=== PATIENT | female | born 1990 | race Caucasian/White ===

== ENCOUNTER 2023-02-01 20:45 | Emergency (ER) | payer MEDICARE, MEDICAID, SELFPAY ==
[2023-02-01 20:46] VITALS: BP 132/81; PULSE 79; RESP 18; TEMP 37.3; O2SAT 97; BMI 45.7
[2023-02-01 21:44] LABS: Basophils # 0.1 10^3/uL (0.0-0.1); Basophils % 0.4 %; Eosinophils # 0.2 10^3/uL (0.0-0.8); Eosinophils % 1.5 %; Hematocrit 39.2 % (36-47); Lymphocytes # 2.7 10^3/uL (0.8-4.8); Lymphocytes % 23.3 %; Mean Corpuscular HGB Conc 31.4 g/dL (30-55); Mean Corpuscular Hemoglobin 28.3 pg (27-33); Mean Corpuscular Volume 90.1 fl (85-98); Monocytes # 0.7 10^3/uL (0.2-0.9); Monocytes % 5.7 %; Neutrophils % 68.8 %; Nucleated Red Blood Cells % 0 %; Platelet Count 301 10^3/cmm (157-399); Red Blood Count 4.35 10^6/uL (3.85-5.65); Red Cell Distribution Width 13.5 % (12.1-15.1)
[2023-02-01 22:11] LABS: Add Urine Microscopic? YES; Bilirubin Urine Neg (Negative); Blood Urine 2+ (Negative); Glucose Urine UA Norm (Normal); Ketones Urine Negative (Negative); Leukocyte Esterase Urine Negative (Negative); Nitrate Urine Negative (Negative); Protein Urine Neg (Negative); Urine Appearance Clear (CLEAR); Urine Color Yellow (Yellow); Urobilinogen Urine 1 mg/dL (Negative); pH Urine 6 (5-7)
[2023-02-01 22:12] LABS: Add Urine Culture? No; Bacteria Urine TRACE /hpf; RBC Urine 0-4 /hpf (0-2)
[2023-02-01 22:14] LABS: Alanine Aminotransferase 24 U/L (0-33); Alkaline Phosphatase 68 U/L (35-105); Anion Gap 14.4 (5-19); Aspartate Amino Transferase 19 U/L (0-32); Blood Urea Nitrogen 14 mg/dL (6-20); Calcium 8.8 mg/dL (8.5-10.5); Carbon Dioxide 25 mmol/L (22-29); Chloride 104 mmol/L (98-107); Globulin 3.3 g/dL (1.3-4.6); Glucose 82 mg/dL (65-115); Lipase 19 U/L (13-60); Osmolality Calculated 288 mOsm/kg (285-295); Potassium 4.4 mmol/L (3.5-5.1); Sodium 139 mmol/L (136-145); Total Bilirubin 0.3 mg/dL (0.15-1.2); Total Protein 7.3 g/dL (6.6-8.7)
[2023-02-01] MEDS: sodium chloride 0.9% 1,000 ML 999 ML IV (22:16)
[2023-02-01] MEDS: ondansetron 2 mg/ML SDV 2 mL 4 MG IVP (22:17)
[2023-02-01 22:21] LABS: HCG Qualitative Urine. Negative (Negative)
--- NOTE | 2023-02-01 22:34 | CTR_ITS ---
PROCEDURE INFORMATION: Exam: CT Abdomen And Pelvis Without Contrast Exam date and time: 02/01/2023 10:46 PM Age: 32 years old Clinical indication: Other: Hematuria TECHNIQUE: Imaging protocol: Computed tomography of the abdomen and pelvis without contrast. Radiation optimization: All CT scans at this facility use at least one of these dose optimization techniques: automated exposure control; mA and/or kV adjustment per patient size (includes targeted exams where dose is matched to clinical indication); or iterative reconstruction. REPORTING DATA: Count of CT and Cardiac NM exams in prior 12 months: This patient has received 0 known CTs and 0 known cardiac nuclear medicine studies in the 12 months prior to the current study. COMPARISON: No relevant prior studies available. RADIATION DOSE METRICS: Total DLP (mGy-cm): 1241.79 FINDINGS: Lungs: Left basilar atelectasis is noted. Liver: Normal. No mass. Gallbladder and bile ducts: Normal. No calcified stones. No ductal dilation. Pancreas: Normal. No ductal dilation. Spleen: Normal. No splenomegaly. Adrenal glands: Normal. No mass. Kidneys and ureters: No renal or ureteral stone is seen. Mild right hydronephrosis is noted. Stomach and bowel: Unremarkable. No obstruction. No mucosal thickening. Appendix: The appendix is normal. Intraperitoneal space: Unremarkable. No free air. No significant fluid collection. Vasculature: Unremarkable. No abdominal aortic aneurysm. Lymph nodes: Unremarkable. No enlarged lymph nodes. Urinary bladder: Unremarkable as visualized. Reproductive: Unremarkable as visualized. Bones/joints: Unremarkable. No acute fracture. Soft tissues: Unremarkable. CT/CT kidney stone [id number] IMPRESSION: No acute abnormality is seen in the abdomen or pelvis. Mild right hydronephrosis is noted. No renal stone or ureteral stone is seen.
--- NOTE | 2023-02-01 23:33 | W.ED.NAVMDI ---
HPI - Nausea/Vomiting/Diarrhea General: Chief complaint: Nausea/Vomiting/Diarrhea Stated complaint: N/V Time Seen by Provider: 02/01/23 20:47 History of Present Illness: 32-year-old female with complex medical history including cerebral palsy presents emergency room via EMS due to nausea and vomiting according to [facility] staff. Upon present emergency room patient is nonverbal but appears to be comfortable without any acute distress. Associated nausea: Yes Associated symtoms: Reports nausea Review of Systems General: Reports: 10 or more systems reviewed and unremarkable except in HPI and below Narrative: Unable to obtain due to patient's medical conditions GI: Reports: nausea and vomiting Physical Exam Const: EXAM LIMITATIONS: physical limitations Eye: COMMON NORMALS: Equal, round and reactive pupils present, EOMs intact bilaterally, conjunctivae normal, no scleral icterus, no papilledema, normal visual ramos by confrontation and fundi normal bilaterally CONJUNCTIVA: Yes conjunctivae normal PUPIL: Yes Equal, round and reactive pupils present DIRECT OPHTHALMOSCOPY: Yes no papilledema and Yes fundi normal bilaterally Neck/C-Spine: COMMON NORMALS: no JVD Resp: COMMON NORMALS: normal respiratory effort, No retractions, No use of accessory muscles, clear to auscultation bilaterally and percussion normal AUSCULTATION: clear to auscultation bilaterally PERCUSSION: percussion normal Cardio: COMMON NORMALS: no JVD, regular rate, regular rhythm, S1 normal heart sound present, S2 normal heart sound present, No gallops present (Cardio), No clicks present (Cardio), No murmurs present (Cardio), No rub (Cardio) and Peripheral pulses 2+ throughout RATE: regular rate RHYTHM: regular rhythm HEART SOUNDS: S1 normal heart sound present and S2 normal heart sound present PERIPHERAL PULSES: Peripheral pulses 2+ throughout GI: COMMON NORMALS: Soft to palpation, non-tender, No hepatosplenomegaly present and no masses PALPATION: Yes Soft to palpation and Yes No hepatosplenomegaly present Extremity: COMMON NORMALS: normal to inspection, full ROM, capillary refill normal, no joint enlargement, no clubbing, cyanosis or edema, no calf tenderness and no pedal edema Neuro: MENINGEAL SIGNS: No nuccal rigidity, No Brudzinski's sign present and No Kernig's sign presnet Skin: GENERAL SKIN EXAM: no ecchymo, no induration, no mottling, no purpura, no pallor and normal turgor TRAUMA: no lacerations or abrasions, no lacerations and no punctures noted Course Vital Signs: Vital signs: Vital Signs Temperature 99.2 F 02/01/23 20:46 Pulse Rate 79 02/01/23 20:46 Respiratory Rate 18 02/01/23 20:46 Blood Pressure 132/81 02/01/23 20:46 Pulse Oximetry 97 02/01/23 20:46 MDM - Nausea/Vomiting/Diarrhea Medical Decision Making Patient made comfortable emergency room had extensive work-up including CBC CMP patient was given IV fluid. And Zofran. CT scan was done. Patient remained stable patient be discharged back to [facility] for further care. Differential Diagnosis Likely traveler's diarrhea, food poisoning, gastroenteritis, clostridium difficile infection, drug-induced nausea and vomiting and dehydration Lab Data 02/01/23 21:30 02/01/23 21:30 Radiology Impressions Abdomen/Pelvis CT 02/01/23 22:34 IMPRESSION: No acute abnormality is seen in the abdomen or pelvis. Mild right hydronephrosis is noted. No renal stone or ureteral stone is seen. Laboratory Results WBC 11.50 10^3/uL (3.29-11.43) H 02/01/23 21:30 RBC 4.35 10^6/uL (3.85-5.65) 02/01/23 21:30 Hgb 12.30 g/dL (11.27-16.99) 02/01/23 21:30 Hct 39.2 % (36-47) 02/01/23 21:30 MCV 90.1 fl (85-98) 02/01/23 21:30 MCH 28.3 pg (27-33) 02/01/23 21:30 MCHC 31.4 g/dL (30-55) 02/01/23 21:30 RDW 13.5 % (12.1-15.1) 02/01/23 21:30 Plt Count 301 10^3/cmm (157-399) 02/01/23 21:30 MPV 11.0 fL (7.4-10.4) H 02/01/23 21:30 Neut % (Auto) 68.8 % 02/01/23 21:30 Lymph % (Auto) 23.3 % 02/01/23 21:30 [place] % (Auto) 5.7 % 02/01/23 21:30 Eos % (Auto) 1.5 % 02/01/23 21:30 Baso % (Auto) 0.4 % 02/01/23 21:30 Neut # (Auto) 7.90 10^3/uL (1.8-7.7) H 02/01/23 21:30 Lymph # (Auto) 2.7 10^3/uL (0.8-4.8) 02/01/23 21:30 [place] # (Auto) 0.7 10^3/uL (0.2-0.9) 02/01/23 21:30 Eos # (Auto) 0.2 10^3/uL (0.0-0.8) 02/01/23: Baso # (Auto) 0.1 10^3/uL (0.0-0.1) 02/01/23 21:30 Nucleated RBC % (auto) 0 % 02/01/23 21: Nucleated RBCs # 0.0 /100WBC 02/01/23 21:30 Sodium 139 mmol/L (136-145) 02/01/23 21:30 Potassium 4.4 mmol/L (3.5-5.1) 02/01/23 21:30 Chloride 104 mmol/L (98-107) 02/01/23 21: Carbon Dioxide 25 mmol/L (22-29) 02/01/23 21:30 Anion Gap 14.4 (5-19) 02/01/23 21:30 BUN 14 mg/dL (6-20) 02/01/23 21:30 Creatinine 0.7 mg/dL (0.5-0.9) 02/01/23 21:30 GFR Calculation 97.0 mL/min (90-130) 02/01/23 21:30 Glucose 82 mg/dL (65-115) 02/01/23 21:30 Calculated Osmolality 288 mOsm/kg (285-295) 02/01/23 21:30 Calcium 8.8 mg/dL (8.5-10.5) 02/01/23 21:30 Total Bilirubin 0.3 mg/dL (0.15-1.2) 02/01/23 21:30 AST 19 U/L (0-32) 02/01/23 21:30 ALT 24 U/L (0-33) 02/01/23 21:30 Alkaline Phosphatase 68 U/L (35-105) 02/01/23 21:30 Total Protein 7.3 g/dL (6.6-8.7) 02/01/23 21:30 Albumin 4.0 g/dL (3.5-5.2) 02/01/23 21:30 Globulin 3.3 g/dL (1.3-4.6) 02/01/23 21:30 Lipase 19 U/L (13-60) 02/01/23 21:30 HCG, Qual Negative (Negative) 02/01/23 21:50 Urine Color Yellow (Yellow) 02/01/23 21:50 Urine Appearance Clear (CLEAR) 02/01/23 21:50 Urine pH 6 (5-7) 02/01/23 21:50 Ur Specific [place] 1.020 (1.005-1.030) 02/01/23 21:50 Urine Protein Neg (Negative) 02/01/23 21:50 Urine Glucose (UA) Norm (Normal) 02/01/23 21:50 Urine Ketones Negative (Negative) 02/01/23 21:50 Urine Blood 2+ (Negative) H 02/01/23 21:50 Urine Nitrate Negative (Negative) 02/01/23 21:50 Urine Bilirubin Neg (Negative) 02/01/23 21:50 Urine Urobilinogen 1 mg/dL (Negative) H 02/01/23 21:50 Ur Leukocyte Esterase Negative (Negative) 02/01/23 21:50 Urine RBC 0-4 /hpf (0-2) H 02/01/23 21:50 Urine WBC None /hpf (0-5) 02/01/23 21:50 Ur Squamous Epith Cells 5-10 /hpf (0-5) H 02/01/23 21:50 Amorphous Sediment Not Reportable 02/01/23 21:50 Urine Bacteria Trace /hpf (NONE) 02/01/23 21:50 XR interpretation done by ED provider, pending radiology final review Discharge Plan Discharge Patient Disposition: Home Clinical Impression: Gastroenteritis Condition: Stable Discharge Orders: Discharge ED (Routine); Ordered 02/01/23 Ordered By: Julio Garcia Referrals: Jignesh Mcarthur MD [Primary Care Provider] - Discharge Diet: Advance as tolerated Discharge Activity: Bedrest Patient Instructions: Opioid Safety, Pain Management Coding Level of Care Code ED Tugboat Pilot for Janay Bartholomew
--- NOTE | 2023-02-02 00:45 | PC.NURSE ---
pts depends, pajama bottoms, and bed sheets were changed d/t incontinence at this time
== END 2023-02-02 02:23 | disposition home or self-care (01) ==
PROVIDERS: Emergency Provider Family Medicine; PCP Family Medicine
DX: K52.9 Noninfective gastroenteritis and colitis, unspecified (principal); N13.30 Unspecified hydronephrosis
CPT/HCPCS: 36415; 74176; 80053; 81001; 81025; 83690; 85025; 96374; 99285; J2405; J7030

== ENCOUNTER → 2023-06-11 10:17 | Outpatient (BNVA) | payer MEDICARE, MEDICAID, SELFPAY | PROVIDERS: PCP Family Medicine; Referring Provider Dermatology; Visit Provider Orthopaedic Surgery | DX: M54.2 Cervicalgia (principal); F84.0 Autistic disorder | CPT/HCPCS: 72040; 99203 ==

== ENCOUNTER 2023-07-20 07:25 | Inpatient (IN) | payer MEDICARE, MEDICAID, SELFPAY ==
[2023-07-20] VITALS (30 sets, daily range): BP systolic 107–146; BP diastolic 72–92; PULSE 56–100; RESP 11–50; TEMP 22.7–36.8; O2SAT 85–98
--- NOTE | 2023-07-20 07:32 | XR_ITS ---
WS: [id number] Examination: XR chest 1V portable [id number] Reason for Exam: Chest pain Date: July 20, 2023 Comparison: None. Findings: The heart is not enlarged. The mediastinum is not widened Extensive infiltrative changes are identified throughout the left lung. No large pleural effusion is identified. There is curvature of the thoracolumbar spine with convexity to the right. Impression: Extensive left-sided infiltrative changes are noted. When the patient can tolerate PA and lateral yoel ging is recommended.
[2023-07-20] MEDS: ziprasidone 20 mg/mL SDV IM (07:45)
--- NOTE | 2023-07-20 07:45 | W.ED.SOB ---
HPI - SOB/Dyspnea General: Chief Complaint: Shortness of Breath/Dyspnea Stated Complaint: SOB Time Seen by Provider: 07/20/23 07:30 History of Present Illness: HPI Narrative: 33-year-old female with history of obesity, autism and severe developmental delay who presents to the emergency room by ambulance with shortness of breath and hypoxemia. EMS reports that her oxygen saturations were in the low 80s. She is very agitated and will not tolerate supplemental oxygen. Unable to obtain any other history. She makes a grunting noise with each breath, however EMS reports that personnel from the facility from which she came reports that she always makes this noise. Review of Systems Narrative: Unable to obtain secondary to autism/developmental delay Physical Exam Narrative: EXAM NARRATIVE: General: Alert, agitated Skin: Warm, dry. Head: Normocephalic, atraumatic. Neck: Supple, trachea midline. Eye: Extraocular movements are intact. Ears, nose, mouth and throat: Moist oral mucosa Cardiovascular: Regular, Normal peripheral perfusion. Respiratory: Coarse, diminished breath sounds on the left, tachypnea, breath sounds are equal, Symmetrical chest wall expansion. Gastrointestinal: Soft, Nontender, Non distended, Normal bowel sounds. Musculoskeletal: Normal ROM, no deformity. Neurological: Alert, No focal neurological deficit observed. Psychiatric: Patient is severely autistic. She is somewhat agitated. She is fairly uncooperative. Course Vital Signs: Vital signs: Vital Signs Temperature 98.3 F 07/20/23 07:27 Pulse Rate 61 07/20/23 10:00 Respiratory Rate 34 H 07/20/23 10:00 Blood Pressure 115/79 07/20/23 10:00 Pulse Oximetry 94 07/20/23 10:00 Oxygen Delivery Me thod Nasal Cannula 07/20/23 09:10 Oxygen Flow Rate 5 07/20/23 09:10 MDM - SOB/Dyspnea Medical Decision Making Medical decision making: Differential diagnosis including but not limited to and based on the above HPI, review of systems and physical exam: Patient with hypoxemia and shortness of breath. Concern for pneumonia, flu, COVID. Sepsis, renal failure, Orders placed to evaluate differential diagnosis based on the above differential, HPI and physical exam Lab Review: Laboratory results were reviewed and interpreted by myself the emergency room physician. Patient has leukocytosis with a white count of 14 and a left shift with neutrophils at 88%. However her lactate is 0.6, so given her fairly normal blood pressure and heart rate I do not think she is septic at this time. Renal function is normal with a BUN and creatinine of 10 and 0.6. Arterial blood gas: 7.32/45/58 with a sat of 86% on room air Chest x-ray: No acute process. Patient has diffuse left-sided infiltrate. No pneumothorax. No cardiomegaly. This was reviewed and interpreted by myself the ER physician. EKG: Time 9:15 AM rate 79 normal sinus rhythm, No ST-T changes, no ectopy, normal ME & QRS intervals, This was reviewed and interpreted by myself the ER physician at 9:18 AM. Reexamination: After 20 mg of Geodon and a total of 3 mg of Ativan, the patient is now somnolent and no longer agitated. She is maintaining her airway at this time. Consultation: I spoke with the hospitalist. He is consulting the flight test engineer. Request a CT scan of the chest. Will admit to the ICU. Lab Data 07/20/23 07:54 07/20/23 07:54 Labs/Radiology: Laboratory Results WBC 14.61 10^3/uL (3.29-11.43) H 07/20/23 07:54 RBC 4.79 10^6/uL (3.85-5.65) 07/20/23 07:54 Hgb 13.90 g/dL (11.27-16.99) 07/20/23 07:54 Hct 42.9 % (36-47) 07/20/23 07:54 MCV 89.6 fl (85-98) 07/20/23 07:54 MCH 29.0 pg (27-33) 07/20/23 07:54 MCHC 32.4 g/dL (30-55) 07/20/23 07:54 RDW 13.2 % (12.1-15.1) 07/20/23 07:54 Plt Count 314 10^3/cmm (157-399) 07/20/23 07:54 MPV 10.6 fL (7.4-10.4) H 07/20/23 07:54 Neut % (Auto) 88.2 % 07/20/23 07:54 Lymph % (Auto) 7.7 % 07/20/23 07:54 [place] % (Auto) 3.4 % 07/20/23 07:54 Eos % (Auto) 0.0 % 07/20/23 07:54 Baso % (Auto) 0.3 % 07/20/23 07:54 Neut # (Auto) 12.88 10^3/uL (1.8-7.7) H 07/20/23 07:54 Lymph # (Auto) 1.1 10^3/uL (0.8-4.8) 07/20/23 07:54 [place] # (Auto) 0.5 10^3/uL (0.2-0.9) 07/20/23 07:54 Eos # (Auto) 0.0 10^3/uL (0.0-0.8) 07/20/23 07:54 Baso # (Auto) 0.1 10^3/uL (0.0-0.1) 07/20/23 07:54 Nucleated RBC % (auto) 0 % 07/20/23 07:54 Nucleated RBCs # 0.0 /100WBC 07/20/23 07:54 Specimen Type Arterial 07/20/23 07:42 Sample Site Radial, left 07/20/23 07:42 ABG pH 7.32 (7.35-7.45) L 07/20/23 07:42 ABG pCO2 44.8 mmHg (35-45) 07/20/23 07:42 ABG pO2 57.5 mmHg (80.0-100.0) L 07/20/23 07:42 ABG PO2/FiO2 Ratio 0 07/20/23 07:42 ABG HCO3 23.2 mmol/L (22-26) 07/20/23 07:42 ABG O2 Saturation 87.9 07/20/23 07:42 ABG Base Excess -3.0 mmol/L (-2.0-2.0) L 07/20/23 07:42 David Test Pos 07/20/23 07:42 A-a O2 Gradient 4.5 mmHg (5-10) L 07/20/23 07:42 Hematocrit 43.8 % (37-47) 07/20/23 07:42 Hgb O2 Saturation 86.6 % (95-100) L 07/20/23 07:42 Carboxyhemoglobin 1.0 %THgb (0.4-20.1) 07/20/23 07:42 Methemoglobin 0.5 % (0.4-1.5) 07/20/23 07:42 Total Hemoglobin 14.3 g/dL (12-16) 07/20/23 07:42 Sodium 140.0 mmol/L (131-143) 07/20/23 07:42 Potassium 4.2 mmol/L (3.5-5.0) 07/20/23 07:42 Glucose 90.0 mg/dL (70-115) 07/20/23 07:42 Ionized Calcium 1.3 mmol/L (1.1-1.4) 07/20/23 07:42 O2 Delivery Device Room air 07/20/23 07:42 FiO2 21.0 % 07/20/23 07:42 Community Nutrition Educator ID [place] 07/20/23 07:42 Sodium 137 mmol/L (136-145) 07/20/23 07:54 Potassium 4.1 mmol/L (3.5-5.1) 07/20/23 07:54 Chloride 102 mmol/L (98-107) 07/20/23 07:54 Carbon Dioxide 21 mmol/L (22-29) L 07/20/23 07:54 Anion Gap 18.1 (5-19) 07/20/23 07:54 BUN 10 mg/dL (6-20) 07/20/23 07:54 Creatinine 0.6 mg/dL (0.5-0.9) 07/20/23 07:54 GFR Calculation 115.1 mL/min (90-130) 07/20/23 07:54 Glucose 107 mg/dL (65-115) 07/20/23 07:54 Calculated Osmolality 284 mOsm/kg (285-295) L 07/20/23 07:54 Lactic Acid 1.4 mmol/L (0.5-2.2) 07/20/23 07:54 Calcium 8.7 mg/dL (8.5-10.5) 07/20/23 07:54 Total Bilirubin 0.6 mg/dL (0.15-1.2) 07/20/23 07:54 AST 35 U/L (0-32) H 07/20/23 07:54 ALT 62 U/L (0-33) H 07/20/23 07:54 Alkaline Phosphatase 81 U/L (35-105) 07/20/23 07:54 C-Reactive Protein 31.1 mg/L (0.0-4.9) H 07/20/23 07:54 Total Protein 7.8 g/dL (6.6-8.7) 07/20/23 07:54 Albumin 4.2 g/dL (3.5-5.2) 07/20/23 07:54 Globulin 3.6 g/dL (1.3-4.6) 07/20/23 07:54 Influenza Type A Ag negative (Negative) 07/20/23 09:04 Influenza Type B Ag negative (Negative) 07/20/23 09:04 All radiology interpretation(s) finalized by discharge Other Data Assessment and plan: Community-acquired bacterial pneumonia Hypoxemia Autism Agitation -IV Levaquin for pneumonia. Also gave a dose of 125 mg of Solu-Medrol -Patient was severely agitated would not tolerate even supplemental oxygen. Initially gave 20 mg of Geodon. Then she has received multiple doses of Ativan. She had become less agitated but is again pulling at her oxygen and so we are starting Precedex drip. This per the hospitalist. -I discussed the patient with the Dr. Jorge who is on-call for the hospitalist service who agrees to admit the patient. - Discussed findings and plan with patient. Answered any questions. - All laboratory values were reviewed and interpreted personally by myself, the ER physician - All imaging was reviewed and interpreted personally by myself, the ER physician. - Evaluation and treatment of this problem were appropriate in the emergency setting --I spent a total of >35 minutes of critical care time managing the patient, independent of any other practitioner. -The time involved in the performance of separately reportable procedures was not counted towards critical care time. Discharge Plan Discharge Patient Disposition: Admitted As Inpatient Clinical Impression: Community acquired pneumonia, Hypoxemia, Autism, Agitation Condition: Stable Coding Level of Care Code ED Medical Advisor for Janay Bartholomew
[2023-07-20] MEDS: water for injection-sterile 10 ML (07:46)
[2023-07-20 07:53] LABS: ABG PCO2 44.8 mmHg (35-45); ABG PH Result 7.32 (7.35-7.45); Alveolar-Arterial Oxygen Gradi 4.5 mmHg (5-10); Arterial Blood Gas Hematocrit 43.8 % (37-47); Blood Gas Allen Test Pos; Blood Gas Operator Identificat WALCI; Blood Gas Sample Site Radial, left; Blood Gas Sample Type Arterial; HCO3 ABG 23.2 mmol/L (22-26); HGB O2 Sat 86.6 % (95-100); Ionized Calcium Level - ABG 1.3 mmol/L (1.1-1.4); Methemoglobin 0.5 % (0.4-1.5); Oxygen Device ROOM AIR; Oxygen Saturation ABG 87.9; PO2 ABG 57.5 mmHg (80.0-100.0); PO2 FiO2 Ratio Arterial Blood 0; Potassium Level - ABG 4.2 mmol/L (3.5-5.0); Total Hemoglobin 14.3 g/dL (12-16)
[2023-07-20] MEDS: ipratropium-albuterol 3 mL Neb INHALATION (07:56)
[2023-07-20] MEDS: albuterol 2.5 mg/3 mL Neb INHALATION (07:56)
--- NOTE | 2023-07-20 08:18 | PC.NURSE ---
ATTEMPTED TO REACH GUARDIAN, PUBLIC ADMIN OFFICE GAVE HER PERSONAL NUMBER AT [phone]. NO ANSWER AT [id number].
--- NOTE | 2023-07-20 09:08 | PC.NURSE ---
patient would not tolerate having pulse ox on consistently, BP cuff, or oxygen until 0901.
[2023-07-20 09:10] LABS: Basophils # 0.1 10^3/uL (0.0-0.1); Basophils % 0.3 %; Hematocrit 42.9 % (36-47); Lymphocytes # 1.1 10^3/uL (0.8-4.8); Lymphocytes % 7.7 %; Mean Corpuscular HGB Conc 32.4 g/dL (30-55); Mean Corpuscular Volume 89.6 fl (85-98); Mean Platelet Volume 10.6 fL (7.4-10.4); Monocytes # 0.5 10^3/uL (0.2-0.9); Monocytes % 3.4 %; Neutrophils # 12.88 10^3/uL (1.8-7.7); Neutrophils % 88.2 %; Nucleated Red Blood Cells % 0 %; Platelet Count 314 10^3/cmm (157-399); Red Blood Count 4.79 10^6/uL (3.85-5.65); Red Cell Distribution Width 13.2 % (12.1-15.1); White Blood Count 14.61 10^3/uL (3.29-11.43)
[2023-07-20] MEDS: LORazepam 2 mg/mL INJ 10 mL MDV 1 MG IV (09:10)
--- NOTE | 2023-07-20 09:15 | ECG_ITS ---
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 Measurements Intervals [place] Rate: 79 P: 46 FL: 140 QRS: 122 QRSD: 93 T: 112 QT: 420 QTc: 482 Interpretive Statements SINUS RHYTHM LEFT POSTERIOR FASCICULAR BLOCK [QRS AXIS > 109, INFERIOR Q] No previous ECG available for comparison Electronically Signed On 07-20-2023 11:45:03 CDT by Christopher Garay M.D. [id number]
[2023-07-20 09:30] LABS: Influenza A by IFA negative (Negative); Influenza B by IFA negative (Negative)
[2023-07-20 09:34] LABS: Alanine Aminotransferase 62 U/L (0-33); Albumin Level 4.2 g/dL (3.5-5.2); Alkaline Phosphatase 81 U/L (35-105); Anion Gap 18.1 (5-19); Aspartate Amino Transferase 35 U/L (0-32); Blood Urea Nitrogen 10 mg/dL (6-20); C Reactive Protein 31.1 mg/L (0.0-4.9); Calcium 8.7 mg/dL (8.5-10.5); Carbon Dioxide 21 mmol/L (22-29); Chloride 102 mmol/L (98-107); Creatinine Clr Calc Pharmacy 148.0868; Globulin 3.6 g/dL (1.3-4.6); Glomerular Filtration Rate 115.1 mL/min (90-130); Glucose 107 mg/dL (65-115); Lactic Sepsis W/Reflex 1.4 mmol/L (0.5-2.2); Osmolality Calculated 284 mOsm/kg (285-295); Potassium 4.1 mmol/L (3.5-5.1); Sodium 137 mmol/L (136-145); Total Bilirubin 0.6 mg/dL (0.15-1.2); Total Protein 7.8 g/dL (6.6-8.7)
--- NOTE | 2023-07-20 10:22 | CT_ITS ---
WS: [id number] CT CHEST TECHNIQUE: Contrast enhanced CT of the chest with coronal and sagittal reformatted images. CLINICAL INFORMATION: Left-sided pneumonia COMPARISON: None. DLP: 658.[address] scans at [facility] use at least one of these dose optimization techniques: automated e xposure control; mA and/or kV adjustment per patient size (includes targeted exams where dose is matc hed to clinical indication); or iterative reconstruction. FINDINGS: Patchy airspace infiltrates in the LEFT upper lobe, lingula, and superior segment LEFT lower lobe co mpatible with pneumonia. Some areas of developing consolidation. No significant pleural fluid. Subseg mental ectasis in the lung bases. No visualized endobronchial lesions. Normal caliber thoracic aorta. No axillary lymphadenopathy. Small esophageal hiatal hernia. Adrenal glands are normal. Hepatomegaly. Diffuse fatty infiltration of the liver. Small hepatic cyst in the RIGHT hepatic lobe measuring 6 mm. Mild chronic compression superior end plates at T5 and T6. IMPRESSION: 1. Patchy airspace infiltrates in the LEFT upper lobe, lingula, and superior segment LEFT lower lobe compatible with pneumonia. 2. No visualized endobronchial lesions. 3. Recommend follow-up to resolution. 4. Partially visualized hepatomegaly with diffuse fatty infiltration.
[2023-07-20] MEDS: iohexol 350 mg/mL 500 mL Btl (per mL) IV (10:56)
[2023-07-20 11:00] LABS: Adenovirus Not Detected (NOT DETECT); Chlamydia Pneumoniae Not Detected (NOT DETECT); Coronavirus 229E,HKU1,NL63,OC4 Not Detected (NOT DETECT); Human Metapneumovirus Not Detected (NOT DETECT); Human Rhinovirus/Enterovirus Not Detected (NOT DETECT); Influenza A Not Detected (NOT DETECT); Influenza A H1 Not Detected (NOT DETECT); Influenza A H1-2009 Not Detected (NOT DETECT); Influenza A H3 Not Detected (NOT DETECT); Influenza B Not Detected (NOT DETECT); Mycoplasma Pneumoniae Not Detected (NOT DETECT); Parainfluenza Virus Type 1 Not Detected (NOT DETECT); Parainfluenza Virus Type 2 Not Detected (NOT DETECT); Parainfluenza Virus Type 3 Not Detected (NOT DETECT); Parainfluenza Virus Type 4 Not Detected (NOT DETECT); Respiratory Syncytial Virus A Not Detected (NOT DETECT); Respiratory Syncytial Virus B Not Detected (NOT DETECT); SARS-COV-2 Not Detected (NOT DETECT)
[2023-07-20] MEDS: levofloxacin-dextrose 5 % 750 MG/150 ML PREMIX 100 MG IV (11:02)
[2023-07-20] MEDS: methylPREDNISolone sod succ 125 mg/2 mL INJ IVP (11:02)
--- NOTE | 2023-07-20 11:10 | P.HP_ITS ---
Documented by User: MAX Oliver 07/20/23 13:01 Providers/Chief Complaint 2 Primary Care Provider: Jignesh Mcarthur MD Chief Complaint: SOB History of Present Illness Sloane Castillo is a 33 year old female with known past medical history of obesity, autism, and severe developmental delay resides at [facility] presents to the emergency room today with chief complaint of shortness of breath and hypoxemia. Ms. Castillo is currently requiring 6 L NC and was tachypneic on assessment this morning. When attempting to interview Ms. Castillo she was very drowsy but still attempting to pull off her oxygen. She was nonverbal but letting out groans intermittently, unable answer any questions. When calling the [facility], Sloane's nurse explained that her normal baseline is nonverbal, she mostly speaks in groans She is able to ambulate and fed herself and does not normally wear oxygen. Around 0300 this morning 07/20/23 patient started groaning and squealing more than usual at 0600 the day shift nurse arrived and said that Sloane was sitting up in a chair and later moved to lay down in bed. Later she found Sloane to be purple in the face with an o2 stat in the 60% they palced her on 2L NC and turned her up to 3L NC. Nursing staff reported to me that it took a total of 30mins to finally get her oxygen 88-90%, EMS finally arrived and brought patient to the hospital. Nurse staff stated that Sloane did not have fever, nausea, or diarrhea recently. They suspected she may have aspirated on something that lead to the sudden need for oxygen. Patient is a full code and does takes her medications crushed with pudding. In the Emergency Department she received Solu-Medrol 125mg IVP, NS 1L bolus, Levaquin 750mg IV, Ativan 1mg IVP, [id number] IM, albuterol breathing treatment, and a douneb breathing treatment. A CBC, CMP, EKG, Chest X-ray, Chest CT w contrast, blood cultures, UA, Flu swab, Covid swab were obtained. Patient to be transferred to the ICU for further care and management of pneumonia. Review of Systems 2 General: Reports: ROS unobtainable due to medical condition Medications/Allergies Home Medications Medication Instructions Recorded Confirmed Last Taken Type acetaminophen 325 mg tablet 650 mg PO QID PRN Pain 07/20/23 07/20/23 07/19/23 History aripiprazole 10 mg tablet 10 mg PO QAM 07/20/23 07/20/23 07/19/23 History baclofen 5 mg tablet 5 mg PO BID 07/20/23 07/20/23 07/19/23 History clonidine HCl 0.1 mg tablet 0.1 mg PO BEDTIME 07/20/23 07/20/23 07/19/23 History diazepam 5 mg tablet 5 mg PO BID 07/20/23 07/20/23 07/19/23 History naloxone 2 mg/2 mL syringe kit 2 mg IM Q2M PRN Opioid Overdose 07/20/23 07/20/23 Unknown History norethindrone acetate 5 mg tablet 5 mg PO QAM 07/20/23 07/20/23 07/19/23 History pantoprazole 40 mg tablet,delayed 40 mg PO QAM 07/20/23 07/20/23 07/19/23 History release propranolol 20 mg tablet 20 mg PO BID 07/20/23 07/20/23 07/19/23 History sertraline 100 mg tablet 150 mg PO QAM 07/20/23 07/20/23 07/19/23 History Allergies Allergy/AdvReac Type Severity Reaction Status Date / Time Penicillins Allergy Unknown Verified 07/20/23 07:55 PFSH Acute 2 PFSH: Medical History Autism Vitals/I&O/Wt Last Vital Signs Temp 98.3 F 07/20/23 07:27 Pulse 61 07/20/23 10:00 Resp 34 H 07/20/23 10:00 BP 115/79 07/20/23 10:00 Pulse Ox 94 07/20/23 10:00 O2 Del Method Nasal Cannula 07/20/23 09:10 O2 Flow Rate 5 07/20/23 09:10 07/19/23 07/20/23 07/20/23 22:59 06:59 14:59 Intake Total Balance Weight last 48 hrs Weight 222 lb Physical Exam 2 Narrative: General exam is white female, appears to be tachypenic, nonverbal at baseline, groans intermittently. HEENT: Atraumatic normocephalic. Oropharynx is clear. Neck is supple. No lymphadenopathy, No thyromegaly. Cardiovascular regular rate and rhythm without murmur Lungs noted to be clear at right upper lobe and dimished to the left upper lobe. Chest rise noted to be sightly higher on right side than left. On 6L NC currently. Abdomen is soft, large, non-tender positive bowel sounds. No obvious organomegaly exam deferred Extremities no clubbing, cyanosis, or edema noted. Full ROM. Skin see findings above Neuro moves all extremities. Data 07/20/23 07:54 07/20/23 07:54 Other Labs: 07/20/23 WBC 14.6, Neut 12.8 AST 35, ALT 62 C-reactive Protein 31.1 Flu negative, Covid negative ABG pH 7.32, pO2 57.5, Hgb O2 saturation 86.6 Blood Cultures pending EKG 07/20/23: Sinus rhythm with a heart rate of 79. Chest X-ray Impression 07/20/23: Extensive left-sided infiltrative changes are noted reported and per my read. Chest CT w contrast 07/20/23: 1. Patchy airspace infiltrates in the LEFT upper lobe, lingula, and superior segment LEFT lower lobe compatible with pneumonia. 2. No visualized endobronchial lesions. 3. Partially visualized hepatomegaly with diffuse fatty infiltration. Micro: Microbiology 07/20/23 10:23 Blood Culture - Preliminary Blood SPECIMEN COLLECTED 07/20/23 10:20 Blood Culture - Preliminary Blood SPECIMEN COLLECTED A&P Assessment and plan (1) Acute hypoxic respiratory failure: Supplement oxygen as needed, currently requiring 6L NC. Douneb Q4 hr Solu-medrol 60mg IVP BID Consult pulmonary, Dr. Garrido (2) Community acquired pneumonia: Initiate IV Rocephin Initiate IV Azithromycin Dounebs Q4 hr Supplement Oxygen as needed Blood cultures pending (3) Autism: Continue home medications, and PRN Ativan for agitation. Coding Level of Care Code Critical Care >/= 30 minutes Diagnoses Acute hypoxic respiratory failure J96.01 Community acquired pneumonia J18.9 Autism F84.0 Documented by User: Eliezer Jorge MD 07/20/23 13:12 Providers/Chief Complaint 2 Admitting Physician: Eliezer Jorge MD Chief Complaint: SOB Medications/Allergies Home Medications Medication Instructions Recorded Confirmed Last Taken Type acetaminophen 325 mg tablet 650 mg PO QID PRN Pain 07/20/23 07/20/23 07/19/23 History aripiprazole 10 mg tablet 10 mg PO QAM 07/20/23 07/20/23 07/19/23 History baclofen 5 mg tablet 5 mg PO BID 07/20/23 07/20/23 07/19/23 History clonidine HCl 0.1 mg tablet 0.1 mg PO BEDTIME 07/20/23 07/20/23 07/19/23 History diazepam 5 mg tablet 5 mg PO BID 07/20/23 07/20/23 07/19/23 History naloxone 2 mg/2 mL syringe kit 2 mg IM Q2M PRN Opioid Overdose 07/20/23 07/20/23 Unknown History norethindrone acetate 5 mg tablet 5 mg PO QAM 07/20/23 07/20/23 07/19/23 History pantoprazole 40 mg tablet,delayed 40 mg PO QAM 07/20/23 07/20/23 07/19/23 History release propranolol 20 mg tablet 20 mg PO BID 07/20/23 07/20/23 07/19/23 History sertraline 100 mg tablet 150 mg PO QAM 07/20/23 07/20/23 07/19/23 History Allergies Allergy/AdvReac Type Severity Reaction Status Date / Time Penicillins Allergy Unknown Verified 07/20/23 07:55 PFSH Acute 2 PFSH: Medical History Autism Data 07/20/23 07:54 07/20/23 07:54 Other Labs: 07/20/23 WBC 14.6, Neut 12.8 AST 35, ALT 62 C-reactive Protein 31.1 Flu negative, Covid negative ABG pH 7.32, pO2 57.5, Hgb O2 saturation 86.6 Blood Cultures pending EKG 07/20/23: Sinus rhythm right axis deviation, left posterior fascicular block by my read. Chest X-ray Impression 07/20/23: Extensive left-sided infiltrative changes are noted reported and per my read. Chest CT w contrast 07/20/23: 1. Patchy airspace infiltrates in the LEFT upper lobe, lingula, and superior segment LEFT lower lobe compatible with pneumonia. 2. No visualized endobronchial lesions. 3. Partially visualized hepatomegaly with diffuse fatty infiltration. A&P Assessment and plan (1) Acute hypoxic respiratory failure: Supplement oxygen as needed, currently requiring 6L NC. Wean as tolerated Douneb Q4 hr Solu-medrol 60mg IVP every 24 hours. Got 125 mg IV in the emergency department. Consult pulmonary, Dr. Garrido. Significantly tachypneic with high risk for worsening. (2) Community acquired pneumonia: Secondary to severity of illness will initiate vancomycin, and Levaquin. Levaquin will cover atypical organisms as well. Dounebs Q4 hr. Budesonide twice daily Supplement Oxygen as needed Blood cultures pending Sputum culture MRSA PCR (3) Autism: Continue home medications, and PRN Ativan for agitation. Secondary to severity of illness with requirement for high levels of oxygen, and significant agitation will place on Precedex. This requires ICU monitoring with his sedative effect. Plan Full code Lovenox for DVT prophylaxis Attestations 2 Medical Necessity Statement*: Will need greater than 2 midnight stay for evaluation and treatment of pneumonia with hypoxemic respiratory failure requiring IV antibiotics. Critical Care Time: The high probability of a clinically significant, sudden or life threatening deterioration of the patient's [pulmonary, neurologic, infectious] system(s) required my full and direct attention, intervention and personal management. The critical care time is as shown. This time is in addition to time spent performing any reported procedures but includes the following: [x] Data and vital sign review and interpretation [x] Patient assessment, examination and intervention [x] Documentation [x] Medication orders and management Critical Care Time (min): 65 Coding Level of Care Code Critical Care >/= 30 minutes Critical care time (in minutes): 65 The high probability of a clinically significant, sudden or life threatening deterioration, as referenced in this documentation, required my full and direct attention, intervention and personal management. The critical care time shown is in addition to time spent performing any reported separately billable procedures and includes the following: [x] Data and vital sign review and interpretation [x ] Patient assessment, examination and intervention [x] Medication orders and management [x] Patient/Family updates as able [x] Care Coordination and Documentation. Diagnoses Acute hypoxic respiratory failure J96.01 Community acquired pneumonia J18.9 Autism F84.0
[2023-07-20] MEDS: dexmedeTOMIDine 0.9 % NaCL 400 MCG/100 ML PREMIX 2.52000000000000002 MCG IV (12:38)
[2023-07-20] MEDS: sodium chloride 0.9% 500 ML 999 ML IV (12:39)
--- NOTE | 2023-07-20 12:46 | PC.NURSE ---
PATIENT ON ROOM AIR AT 95% SPO2
--- NOTE | 2023-07-20 13:40 | PC.NURSE ---
Precedex stopped per dr. robb due to decrease in heart rate from 80 to 55. VOTING MACHINE MECHANIC Laxmi notified.
--- NOTE | 2023-07-20 15:31 | PC.NURSE ---
Pt was brought to the ICU on room air via bed. All vitals WNL. No belongings.
[2023-07-20] MEDS: vancomycin 1,000 MG in sodium chloride 0.9% 250 ML 250 MG IV ×2 (15:45→22:57)
[2023-07-20] MEDS: sodium chloride 0.9% 1,000 ML 75 ML IV (15:46)
[2023-07-20] MEDS: enoxaparin 40 mg/0.4 mL Syringe SUBCUT (15:46)
[2023-07-20] MEDS: propranolol 20 mg Tablet PO (18:28)
[2023-07-20] MEDS: baclofen 10 mg Tablet 5 MG PO (18:28)
--- NOTE | 2023-07-20 22:02 | P.CONIM_ITS ---
Providers/Reason For Consult 2 Consulting Physician/Specialty*: Lizandro Ash MD, FCCP/pulmonary critical care Reason for Consult*: Hypoxic respiratory failure Requesting Physician: Eliezer Jorge MD Attending Physician: Eliezer Jorge MD Primary Care Provider: Jignesh Mcarthur MD History of Present Illness History of Present Illness Sloane Castillo is a 33 year old female with known past medical history of obesity, autism, and severe developmental delay resides at [facility] presents to the emergency room today with chief complaint of shortness of breath and hypoxemia. Pulmonary consult requested for hypoxemia. According to the admitting hospitalist-She was nonverbal but letting out groans intermittently, unable answer any questions. When calling the [facility], Sloane's nurse explained that her normal baseline is nonverbal, she mostly speaks in groans She is able to ambulate and fed herself and does not normally wear oxygen. Around 0300 this morning 07/20/23 patient started groaning and squealing more than usual at 0600 the day shift nurse arrived and said that Sloane was sitting up in a chair and later moved to lay down in bed. Later she found Sloane to be purple in the face with an o2 stat in the 60% they palced her on 2L NC and turned her up to 3L NC. Nursing staff reported to me that it took a total of 30mins to finally get her oxygen 88-90%, EMS finally arrived and brought patient to the hospital. Nurse staff stated that Sloane did not have fever, nausea, or diarrhea recently. They suspected she may have aspirated on something that lead to the sudden need for oxygen. Patient is a full code and does takes her medications crushed with pudding. In the Emergency Department, on admission her ABG showed pH 7.3 //23 on room air; after some time she was requiring 6 L nasal cannula, tachypneic, very drowsy but still attempting to pull off her oxygen. she received Solu-Medrol 125mg IVP, NS 1L bolus, Levaquin 750mg IV, Ativan 1mg IVP, [id number] IM, albuterol breathing treatment, and a DuoNeb breathing treatment. A CBC, CMP, EKG, Chest X-ray, Chest CT w contrast, blood cultures, UA, Flu swab, Covid swab were obtained and patient was transferred to the ICU for further care and management of pneumonia. I have seen patient while still in ER [facility]-she received Ativan and is resting well and supplemental oxygen down to [address] chest showed patchy airspace infiltrates in the left upper lobe, lingula and superior segment left lower lobe compatible with pneumonia. She was started on Rocephin and azithromycin., Solu-Medrol IV twice daily Review of Systems 2 General: Reports: 10 or more systems reviewed and unremarkable except in HPI and below Medications/Allergies Home Medications Medication Instructions Recorded Confirmed Last Taken Type acetaminophen 325 mg tablet 650 mg PO QID PRN Pain 07/20/23 07/20/23 07/19/23 History aripiprazole 10 mg tablet 10 mg PO QAM 07/20/23 07/20/23 07/19/23 History baclofen 5 mg tablet 5 mg PO BID 07/20/23 07/20/23 07/19/23 History clonidine HCl 0.1 mg tablet 0.1 mg PO BEDTIME 07/20/23 07/20/23 07/19/23 History diazepam 5 mg tablet 5 mg PO BID 07/20/23 07/20/23 07/19/23 History naloxone 2 mg/2 mL syringe kit 2 mg IM Q2M PRN Opioid Overdose 07/20/23 07/20/23 Unknown History norethindrone acetate 5 mg tablet 5 mg PO QAM 07/20/23 07/20/23 07/19/23 History pantoprazole 40 mg tablet,delayed 40 mg PO QAM 07/20/23 07/20/23 07/19/23 History release propranolol 20 mg tablet 20 mg PO BID 07/20/23 07/20/23 07/19/23 History sertraline 100 mg tablet 150 mg PO QAM 07/20/23 07/20/23 07/19/23 History levofloxacin 750 mg tablet 750 mg PO DAILY 5 days #5 tabs 07/21/23 Unknown Rx metronidazole 500 mg tablet 500 mg PO TID #21 tabs 07/21/23 Unknown Rx Allergies Allergy/AdvReac Type Severity Reaction Status Date / Time Penicillins Allergy Unknown Verified 07/20/23 07:55 Current Medications Generic Name Dose Route Start Last Admin Trade Name Freq PRN Reason Stop Dose Admin Baclofen 5 mg 07/20/23 18:00 04/02/24 18:28 Baclofen 10 Mg Tablet PO 5 mg BID TAMEKA Administration Enoxaparin Sodium 40 mg 07/20/23 15:00 07/20/23 15:46 Enoxaparin 40 Mg/0.4 Ml Syringe SUBCUT 40 mg Q24H TAMEKA Administration Dexmedetomidine/Sodium Chloride 400 mcg in 100 mls @ 0 mls/hr 07/20/23 12:45 07/20/23 13:22 Precedex IV 0 mcg/kg/hr .Q0M TAMEKA 0 mls/hr Titration Protocol Per Protocol Sodium Chloride 1,000 mls @ 75 mls/hr 07/20/23 13:41 07/20/23 19:59 Sodium Chloride 0.9% IV 75 mls/hr .[id number] TAMEKA Infusion Vancomycin HCl 1,000 mg/ 250 mls @ 250 mls/hr 07/20/23 15:00 07/20/23 19:13 Sodium Chloride IV Infused Q8H TAMEKA Infusion Protocol As Directed Propranolol HCl 20 mg 07/20/23 18:00 07/20/23 18:28 Propranolol 20 Mg Tablet PO 20 mg BID TAMEKA Administration PFSH Acute 2 PFSH: Medical History Autism Vitals/I&O/Wt Last Vital Signs Temp 98.1 F 07/20/23 20:55 Pulse 67 07/20/23 20:00 Resp 16 07/20/23 20:00 BP 107/84 07/20/23 20:00 Pulse Ox 94 07/20/23 20:00 O2 Del Method Room Air 07/20/23 20:00 O2 Flow Rate 5 07/20/23 09:10 07/20/23 07/20/23 07/20/23 06:59 14:59 22:59 Intake Total 661.848 / 661.848 508.75 / 1170.598 Balance 661.848 / 661.848 508.75 / 1170.598 Weight last 48 hrs Weight 222 lb Physical Exam 2 Narrative: PHYSICAL EXAM: General: lying in bed, sedated HEENT:NCAT, PERRLA, EOMI Neck: Supple Lungs: Clear, Heart: s1/s2, RRR Abd: soft, NT, ND, BS + Normoactive Extremities: No edema RESTAURANT FRONT MANAGER: sedated and limited RESTAURANT FRONT MANAGER exam possible. SKIN: no rash Data 07/21/23 04:27 07/21/23 04:27 Other Labs: Laboratory Results WBC 9.46 10^3/uL (3.29-11.43) 07/21/23 04:27 RBC 4.22 10^6/uL (3.85-5.65) 07/21/23 04:27 Hgb 12.00 g/dL (11.27-16.99) 07/21/23 04:27 Hct 37.6 % (36-47) 07/21/23 04:27 MCV 89.1 fl (85-98) 07/21/23 04:27 MCH 28.4 pg (27-33) 07/21/23 04:27 MCHC 31.9 g/dL (30-55) 07/21/23 04:27 RDW 13.5 % (12.1-15.1) 07/21/23 04:27 Plt Count 285 10^3/cmm (157-399) 07/21/23 04:27 MPV 11.0 fL (7.4-10.4) H 07/21/23 04:27 Neut % (Auto) 77.1 % 07/21/23 04:27 Lymph % (Auto) 17.4 % 07/21/23 04:27 Rock % (Auto) 5.0 % 07/21/23 04:27 Eos % (Auto) 0.0 % 07/21/23 04:27 Baso % (Auto) 0.1 % 07/21/23 04:27 Neut # (Auto) 7.29 10^3/uL (1.8-7.7) 07/21/23 04:27 Lymph # (Auto) 1.7 10^3/uL (0.8-4.8) 07/21/23 04:27 Rock # (Auto) 0.5 10^3/uL (0.2-0.9) 07/21/23 04:27 Eos # (Auto) 0.0 10^3/uL (0.0-0.8) 07/21/23 04:27 Baso # (Auto) 0.0 10^3/uL (0.0-0.1) 07/21/23 04:27 Nucleated RBC % (auto) 0 % 07/21/23 04:27 Nucleated RBCs # 0.0 /100WBC 07/21/23 04:27 Specimen Type Arterial 07/20/23 07:42 Sample Site Radial, left 07/20/23 07:42 ABG pH 7.32 (7.35-7.45) L 07/20/23 07:42 ABG pCO2 44.8 mmHg (35-45) 07/20/23 07:42 ABG pO2 57.5 mmHg (80.0-100.0) L 07/20/23 07:42 ABG PO2/FiO2 Ratio 0 07/20/23 07:42 ABG HCO3 23.2 mmol/L (22-26) 07/20/23 07:42 ABG O2 Saturation 87.9 07/20/23 07:42 ABG Base Excess -3.0 mmol/L (-2.0-2.0) L 07/20/23 07:42 David Test Pos 07/20/23 07:42 A-a O2 Gradient 4.5 mmHg (5-10) L 07/20/23 07:42 Hematocrit 43.8 % (37-47) 07/20/23 07:42 Hgb O2 Saturation 86.6 % (95-100) L 07/20/23 07:42 Carboxyhemoglobin 1.0 %THgb (0.4-20.1) 07/20/23 07:42 Methemoglobin 0.5 % (0.4-1.5) 07/20/23 07:42 Total Hemoglobin 14.3 g/dL (12-16) 07/20/23 07:42 Sodium 140.0 mmol/L (131-143) 07/20/23 07:42 Potassium 4.2 mmol/L (3.5-5.0) 07/20/23 07:42 Glucose 90.0 mg/dL (70-115) 07/20/23 07:42 Ionized Calcium 1.3 mmol/L (1.1-1.4) 07/20/23 07:42 O2 Delivery Device Room air 07/20/23 07:42 FiO2 21.0 % 07/20/23 07:42 Image Scientist ID [place]ci 07/20/23 07:42 Sodium 138 mmol/L (136-145) 07/21/23 04:27 Potassium 3.9 mmol/L (3.5-5.1) 07/21/23 04:27 Chloride 107 mmol/L (98-107) 07/21/23 04:27 Carbon Dioxide 20 mmol/L (22-29) L 07/21/23 04:27 Anion Gap 14.9 (5-19) 07/21/23 04:27 BUN 10 mg/dL (6-20) 07/21/23 04:27 Creatinine 0.5 mg/dL (0.5-0.9) 07/21/23 04:27 GFR Calculation 142.1 mL/min (90-130) H 07/21/23 04:27 Glucose 94 mg/dL (65-115) 07/21/23 04:27 Calculated Osmolality 285 mOsm/kg (285-295) 07/21/23 04:27 Lactic Acid 1.4 mmol/L (0.5-2.2) 07/20/23 07:54 Calcium 8.2 mg/dL (8.5-10.5) L 07/21/23 04:27 Magnesium 2.5 mg/dL (1.7-2.3) H 07/21/23 04:27 Total Bilirubin 0.6 mg/dL (0.15-1.2) 07/21/23 04:27 AST 37 U/L (0-32) H 07/21/23 04:27 ALT 68 U/L (0-33) H 07/21/23 04:27 Alkaline Phosphatase 62 U/L (35-105) 07/21/23 04:27 C-Reactive Protein 31.1 mg/L (0.0-4.9) H 07/20/23 07:54 Total Protein 6.7 g/dL (6.6-8.7) 07/21/23 04:27 Albumin 3.6 g/dL (3.5-5.2) 07/21/23 04:27 Globulin 3.1 g/dL (1.3-4.6) 07/21/23 04:27 Coronavirus 229E (PCR) Not detected (NOT DETECT) 07/20/23 09:04 Influenza Type A Ag negative (Negative) 07/20/23 09:04 Influenza Type B Ag negative (Negative) 07/20/23 09:04 SARS-CoV-2 (PCR) Not detected (NOT DETECT) 04/02/24 09:04 MRSA (PCR) Not detected (NOT DETECTED) 07/20/23 18:10 Micro: Microbiology 07/20/23 10:23 Blood Culture - Preliminary Blood SPECIMEN COLLECTED 07/20/23 10:20 Blood Culture - Preliminary Blood SPECIMEN COLLECTED A&P Assessment and plan (1) Community acquired pneumonia: CT evidence of left lung pneumonia Patient on arrival to ED he required 6 L oxygen-and she was pulling of tubes; received Ativan-and she calmed down. After moving to ICU her oxygen requirement dramatically reduced to room air. Suspect if she has sudden vocal cords paralysis secondary to anxiety-causing negative pressure pulmonary edema Will monitor for 24 hours in ICU Consider sleep therapy evaluation (2) Autism: Consult Attestations 2 Medical Necessity Statement: Continue to monitor for 24 hours Coding Level of Care Code Acute Code for Chg Fwd Diagnoses Community acquired pneumonia J18.9 Autism F84.0 Time Spent (min) 63
[2023-07-20] MEDS: LORazepam 2 mg/mL INJ 10 mL MDV 0.5 MG IVP (23:06)
[2023-07-21] VITALS (7 sets, daily range): BP systolic 129–136; BP diastolic 69–86; PULSE 72–81; RESP 16–20; TEMP 36.7–36.9; O2SAT 96–97
[2023-07-21 04:47] LABS: Basophils % 0.1 %; Hematocrit 37.6 % (36-47); Lymphocytes # 1.7 10^3/uL (0.8-4.8); Lymphocytes % 17.4 %; Mean Corpuscular HGB Conc 31.9 g/dL (30-55); Mean Corpuscular Hemoglobin 28.4 pg (27-33); Mean Corpuscular Volume 89.1 fl (85-98); Monocytes # 0.5 10^3/uL (0.2-0.9); Neutrophils # 7.29 10^3/uL (1.8-7.7); Neutrophils % 77.1 %; Nucleated Red Blood Cells % 0 %; Platelet Count 285 10^3/cmm (157-399); Red Blood Count 4.22 10^6/uL (3.85-5.65); Red Cell Distribution Width 13.5 % (12.1-15.1); White Blood Count 9.46 10^3/uL (3.29-11.43)
[2023-07-21 05:04] LABS: Alanine Aminotransferase 68 U/L (0-33); Albumin Level 3.6 g/dL (3.5-5.2); Alkaline Phosphatase 62 U/L (35-105); Anion Gap 14.9 (5-19); Aspartate Amino Transferase 37 U/L (0-32); Blood Urea Nitrogen 10 mg/dL (6-20); Calcium 8.2 mg/dL (8.5-10.5); Carbon Dioxide 20 mmol/L (22-29); Chloride 107 mmol/L (98-107); Creatinine Clr Calc Pharmacy 174.2178; Globulin 3.1 g/dL (1.3-4.6); Glomerular Filtration Rate 142.1 mL/min (90-130); Glucose 94 mg/dL (65-115); Magnesium 2.5 mg/dL (1.7-2.3); Osmolality Calculated 285 mOsm/kg (285-295); Potassium 3.9 mmol/L (3.5-5.1); Sodium 138 mmol/L (136-145); Total Bilirubin 0.6 mg/dL (0.15-1.2); Total Protein 6.7 g/dL (6.6-8.7)
[2023-07-21] MEDS: sertraline 100 mg Tablet 150 MG PO (05:18)
[2023-07-21] MEDS: ARIPiprazole 10 mg Tablet PO (05:18)
[2023-07-21] MEDS: ondansetron 2 mg/ML SDV 2 mL 4 MG IVP (05:54)
[2023-07-21] MEDS: vancomycin 1,000 MG in sodium chloride 0.9% 250 ML 250 MG IV (06:01)
[2023-07-21] MEDS: baclofen 10 mg Tablet 5 MG PO (08:20)
[2023-07-21] MEDS: diazePAM 5 mg Tablet PO (08:21)
[2023-07-21] MEDS: pantoprazole 40 mg SDV IVP (08:22)
[2023-07-21] MEDS: propranolol 20 mg Tablet PO (08:22)
[2023-07-21] MEDS: methylPREDNISolone sod succ 125 mg/2 mL INJ 60 MG IVP (08:24)
--- NOTE | 2023-07-21 08:46 | PM.DCS ---
Discharge Providers Date of Admission: 07/20/23 11:55 Date of Discharge: July 21, 2023 Attending Provider at Admission: Eliezer Jorge MD Attending Provider at Discharge: Eliezer Jorge MD Primary Care Provider: Jignesh Mcarthur MD Diagnoses at Discharge Discharge Diagnosis (1) Acute hypoxic respiratory failure: Status: Acute (2) Community acquired pneumonia: Status: Acute (3) Autism: Status: Acute Reason for Visit Reason for Visit: SOB Hospital Course Hospital Course Sloane is a 33-year-old white female with developmental delay and reported autism who presented to the hospital with hypoxia and shortness of breath. Chest x-ray demonstrated a left lung pneumonia. She had an elevated white count, and required oxygen. CT chest with contrast was done demonstrating a left-sided pneumonia, no mass or obvious foreign body. After transition to the ICU on a significant amount of oxygen she improved rather rapidly. Speech therapy evaluated her, and recommended a feeder to slow her eating as well as a level 5 dysphagia diet. By the next day she was on room air. It was thought she could transition to oral antibiotics as she did not appear short of breath, had a normal oxygen saturation of 97%. She was transferred back to the nursing facility. I called her guardian, to update her regarding the situation. She was able to ask questions, and agreed with the plan. Physical Exam Narrative: General exam no distress Neck is supple Cardiovascular regular rate and rhythm Lungs clear Abdomen is soft Extremities no cyanosis clubbing or edema Discharge Data Studies Completed and Pending Completed Studies During Hospitalization Category Date Time Status CT chest w con* [id number] Stat Cat Scan 07/20/23 10:22 Completed XR chest 1V portable [id number] Stat Exams 07/20/23 07:32 Completed Pending at discharge Category Date Time Status Blood Culture Stat Lab 07/20/23 10:23 Results MRSA [Methicillin Resistant S.aureu] Routine Lab 07/20/23 18:10 Received Sputum Culture Routine Lab 07/20/23 13:41 Uncollected Vancomycin Trough Timed Lab 07/21/23 14:00 Ordered Laboratory Results WBC 9.46 10^3/uL (3.29-11.43) 07/21/23 04:27 RBC 4.22 10^6/uL (3.85-5.65) 07/21/23 04:27 Hgb 12.00 g/dL (11.27-16.99) 07/21/23 04:27 Hct 37.6 % (36-47) 07/21/23 04: MCV 89.1 fl (85-98) 07/21/23 04: MCH 28.4 pg (27-33) 07/21/23 04: MCHC 31.9 g/dL (30-55) 07/21/23 04: RDW 13.5 % (12.1-15.1) 07/21/23 04:27 Plt Count 285 10^3/cmm (157-399) 07/21/23 04: MPV 11.0 fL (7.4-10.4) H 07/21/23 04:27 Neut % (Auto) 77.1 % 07/21/23 04: Lymph % (Auto) 17.4 % 07/21/23 04: [place] % (Auto) 5.0 % 07/21/23 04: Eos % (Auto) 0.0 % 07/21/23 04: Baso % (Auto) 0.1 % 07/21/23 04: Neut # (Auto) 7.29 10^3/uL (1.8-7.7) 07/21/23 04: Lymph # (Auto) 1.7 10^3/uL (0.8-4.8) 07/21/23 04: [place] # (Auto) 0.5 10^3/uL (0.2-0.9) 07/21/23 04: Eos # (Auto) 0.0 10^3/uL (0.0-0.8) 07/21/23 04: Baso # (Auto) 0.0 10^3/uL (0.0-0.1) 07/21/23 04: Nucleated RBC % (auto) 0 % 07/21/23 04: Nucleated RBCs # 0.0 /100WBC 07/21/23 04: Specimen Type Arterial 07/20/23 07:42 Sample Site Radial, left 07/20/23 07:42 ABG pH 7.32 (7.35-7.45) L 07/20/23 07:42 ABG pCO2 44.8 mmHg (35-45) 07/20/23 07:42 ABG pO2 57.5 mmHg (80.0-100.0) L 07/20/23 07:42 ABG PO2/FiO2 Ratio 0 07/20/23 07:42 ABG HCO3 23.2 mmol/L (22-26) 07/20/23 07:42 ABG O2 Saturation 87.9 07/20/23 07:42 ABG Base Excess -3.0 mmol/L (-2.0-2.0) L 07/20/23 07:42 David Test Pos 07/20/23 07:42 A-a O2 Gradient 4.5 mmHg (5-10) L 07/20/23 07:42 Hematocrit 43.8 % (37-47) 07/20/23 07:42 Hgb O2 Saturation 86.6 % (95-100) L 07/20/23 07:42 Carboxyhemoglobin 1.0 %THgb (0.4-20.1) 07/20/23 07:42 Methemoglobin 0.5 % (0.4-1.5) 07/20/23 07:42 Total Hemoglobin 14.3 g/dL (12-16) 07/20/23 07:42 Sodium 140.0 mmol/L (131-143) 07/20/23 07:42 Potassium 4.2 mmol/L (3.5-5.0) 07/20/23 07:42 Glucose 90.0 mg/dL (70-115) 07/20/23 07:42 Ionized Calcium 1.3 mmol/L (1.1-1.4) 07/20/23 07:42 O2 Delivery Device Room air 07/20/23 07:42 FiO2 21.0 % 07/20/23 07:42 Vice President Of Marketing ID [place] 07/20/23 07:42 Sodium 138 mmol/L (136-145) 07/21/23 04:27 Potassium 3.9 mmol/L (3.5-5.1) 07/21/23 04:27 Chloride 107 mmol/L (98-107) 07/21/23 04:27 Carbon Dioxide 20 mmol/L (22-29) L 07/21/23 04:27 Anion Gap 14.9 (5-19) 07/21/23 04:27 BUN 10 mg/dL (6-20) 07/21/23 04:27 Creatinine 0.5 mg/dL (0.5-0.9) 07/21/23 04:27 GFR Calculation 142.1 mL/min (90-130) H 07/21/23 04:27 Glucose 94 mg/dL (65-115) 07/21/23 04:27 Calculated Osmolality 285 mOsm/kg (285-295) 07/21/23 04:27 Lactic Acid 1.4 mmol/L (0.5-2.2) 07/20/23 07:54 Calcium 8.2 mg/dL (8.5-10.5) L 07/21/23 04:27 Magnesium 2.5 mg/dL (1.7-2.3) H 07/21/23 04:27 Total Bilirubin 0.6 mg/dL (0.15-1.2) 07/21/23 04:27 AST 37 U/L (0-32) H 07/21/23 04:27 ALT 68 U/L (0-33) H 07/21/23 04:27 Alkaline Phosphatase 62 U/L (35-105) 07/21/23 04:27 C-Reactive Protein 31.1 mg/L (0.0-4.9) H 07/20/23 07:54 Total Protein 6.7 g/dL (6.6-8.7) 07/21/23 04:27 Albumin 3.6 g/dL (3.5-5.2) 07/21/23 04:27 Globulin 3.1 g/dL (1.3-4.6) 07/21/23 04:27 Coronavirus 229E (PCR) Not detected (NOT DETECT) 07/20/23 09:04 Influenza Type A Ag negative (Negative) 07/20/23 09:04 Influenza Type B Ag negative (Negative) 07/20/23 09:04 SARS-CoV-2 (PCR) Not detected (NOT DETECT) 07/20/23 09:04 Vitals Last Vital Signs Temp 98.5 F 07/21/23 04:00 Pulse 73 07/21/23 06:00 Resp 16 07/21/23 06:00 BP 136/86 07/21/23 04:00 Pulse Ox 97 07/21/23 06:00 O2 Del Method Room Air 07/21/23 06:00 O2 Flow Rate 5 07/20/23 09:10 Discharge Plan Discharge Patient Disposition: Xfer SNF Condition: Stable Prescriptions: New levofloxacin 750 mg tablet 750 mg PO DAILY 5 Days Qty: 5 0RF metronidazole 500 mg tablet 500 mg PO TID Qty: 21 0RF Continued clonidine HCl 0.1 mg tablet 0.1 mg PO BEDTIME acetaminophen 325 mg Tablet 650 mg PO QID PRN (Reason: Pain) sertraline 100 mg tablet 150 mg PO QAM pantoprazole 40 mg tablet,delayed release (DR/EC) 40 mg PO QAM norethindrone acetate 5 mg tablet 5 mg PO QAM propranolol 20 mg tablet 20 mg PO BID diazepam 5 mg tablet 5 mg PO BID aripiprazole 10 mg tablet 10 mg PO QAM baclofen 5 mg tablet 5 mg PO BID naloxone 2 mg/2 mL Syringe Kit 2 mg IM Q2M PRN (Reason: Opioid Overdose) Rx Instructions: NTExceed 10 mg total dose/episode Discharge Orders: Discharge Order (Routine); Ordered 07/21/23 Ordered By: Eliezer Jorge Referrals: [facility] [Outside] Jignesh Mcarthur MD [Primary Care Provider] - 4-7 days Discharge Diet: Usual diet Discharge Activity: Increase activity as tolerated Patient Instructions: Opioid Safety Activity Restrictions/Additional Instructions: Set up with primary care provider 3 to 5 days Please provide feeder, as patient tends to eat quickly and there is concern for aspiration Minced and moist diet, level 5 Finish antibiotics Chest x-ray in 2 weeks, follow-up pneumonia Discharge Attestations Time Spent in Discharge Care*: greater than 30 min Quality Metrics Clinical Quality Measures [ No reported AMI, CVA or VTE this stay] Coding Level of Care Code 48996 Total time (in minutes) for Discharge: 32 Diagnoses Acute hypoxic respiratory failure J96.01 Community acquired pneumonia J18.9 Autism F84.0
[2023-07-21] MEDS: levofloxacin-dextrose 5 % 750 MG/150 ML PREMIX 100 MG IV (08:54)
[2023-07-21] MEDS: LORazepam 2 mg/mL INJ 10 mL MDV 0.5 MG IVP (09:26)
--- NOTE | 2023-07-21 10:35 | PC.NURSE ---
Pt getting agitated. She said she is ready to go. Ambulated 2 ties around unit seemed to help he agitation. She went back to room, incontinent of urine. Pericare, fresh incontinence briefs and dry gown provided. She washed her hands in the sink then proceeded to clean the sink too.
--- NOTE | 2023-07-21 10:55 | PC.NURSE ---
Report called to [place]. Report given to Shirley. No further questions. Ride to be here around noon.
[2023-07-22 15:05] LABS: Methicillin-Resist S.aureu PCR NOT DETECTED (NOT DETECTED)
== END 2023-07-21 12:15 | disposition skilled nursing facility (03) | DRG 193 ==
LOC: ER 10:35 → ICU 11:56
PROVIDERS: Admitting Provider Internal Medicine; Emergency Provider Emergency Medicine; PCP Family Medicine; Visit Provider Internal Medicine
DX: J18.9 Pneumonia, unspecified organism (principal); J96.01 Acute respiratory failure with hypoxia; Z68.41 Body mass index [BMI] 40.0-44.9, adult; F84.0 Autistic disorder; E66.9 Obesity, unspecified; R62.50 Unspecified lack of expected normal physiological development in childhood
CPT/HCPCS: 36415; 36600; 71045; 71260; 80051; 80053; 82330; 82805; 83605; 83735; 85025; 86140; 87040; 87635; 87641; 87804; 92610; 93005; 94640; 96365; 96367; 96372; 96375; 96376; 99291; 99292; C9113; J1650; J1956; J2060; J2405; J2919; J3370; J3486; J7030; J7040; J7050; J7613; Q9967

== ENCOUNTER 2024-10-25 09:58 | Emergency (ER) | payer MEDICARE, MEDICAID, SELFPAY ==
--- OUTSIDE RECORDS SUMMARY | 2024-09-19 12:00 | XMS_ITS ---
Author Organization [facility] Address [address] [place] [address] Care Team Providers Care Outpatient Pharmacy Manager Name Role Phone Raul Cardoza Primary Care Provider Rasheed Sal [phone] REASON FOR VISIT X/Ref Social History Sex Assigned At : Social History Observation Description Sex Assigned At Female Encounters Encounter Location Date Provider Diagnosis [facility] [address] [place] [address] 09/19/2024 Rasheed Sal Plan Of Treatment No Information Progress Notes * Sloane CASTILLODOB: [birth year] (34 yo F)Acc No.[id number]:09/19/2024 Patient: Sloane Fuentes Provider: Mabel Sal DDS :1990 A ge:34 Y S ex:Female Date:09/19/2024 Address:[address] [id number] Pcp:Raul Cardoza Subjective: * Chief Complaints: * X /Ref * Electronic signature of Jerman anabel Sal on 10/25/2024 at 10:01 AM CDT Sign off status: Pending * Provider: Mabel Sal DDS Date: 0 09/19/2024 Generated for [employer] ng/Faxing/eTransmitting on: 0 10/25/2024 10:01 AM CDT
[2024-10-25 09:59] VITALS: BP 141/95; PULSE 63; RESP 22; TEMP 36.4; O2SAT 98; BMI 36.6
--- OUTSIDE RECORDS SUMMARY | 2024-10-25 10:01 | XMS_ITS | Patient Health Record ---
Author Organization [facility] Address [address] [place] [address] Care Team Providers Care Wheelchair Van Operator First Responder Name Role Phone Raul Cardoza Primary Care Provider [phone] Rasheed Sal [phone] Allergies Allergen (clinical drug ingredient) Drug/Non Drug Allergy documented on EMR Reaction Allergy Type Onset Date Status Penicillin Unknown Drug Allergy Active Reason For Referral No Information Social History Sex Assigned At : Social History Observation Description Sex Assigned At Female Vital Signs Height-cm 157.48 cm 09/12/2024 Weight-kg 89.81 kg 09/12/2024 Height 62 in 09/12/2024 Weight 198 lbs 09/12/2024 BMI 36.21 kg/m2 09/12/2024 Encounters Encounter Location Date Provider Diagnosis [facility] [address] [place] [address] 08/15/2024 Raul Cardoza [facility] [address] [place] [address] 09/12/2024 Rasheed Sal [facility] [address] [place] [address] 08/24/2024 Rasheed Sal [facility] [address] [place] [address] 08/29/2024 Rasheed Sal [facility] [address] [place] [address] 09/27/2024 Rasheed Sal [address] [place] [address] [facility] Clinic [address] [place] [address] 09/28/2024 Rasheed Sal Plan Of Treatment No Information Insurance Providers Payer Name Payer Address Payer Phone Subscriber Number Group Number Insured Name Patient Relationship to Insured Coverage Start Date Coverage End Date Medicaid Dental [address] [place] [address] [id number] Sloane Castillo Self - patient is the insured Medicaid [address] [place] [address] [id number] Sloane Castillo Self - patient is the insured
--- OUTSIDE RECORDS SUMMARY | 2024-10-25 10:01 | XMS_ITS | Clinical Summary ---
Author Organization [facility] Address [address] [place] [address] Care Team Providers Care Cat Driver Name Role Phone Jignesh Mcarthur MD Primary Care Provider Allergies Active Allergy Reactions Criticality Noted Date Comments Penicillins Unknown 03/30/2022 Medications acetaminophen (TYLENOL) 325 mg tablet Take by mouth every 6 (six) hours as needed for mild pain. Active ARIPiprazole (ABILIFY) 10 MG tablet Take 10 mg by mouth in the morning. Active baclofen 5 mg tablet Take 5 mg by mouth in the morning and 5 mg at noon and 5 mg in the evening. Active cloNIDine (CATAPRES) 0.1 MG tablet Take 0.1 mg by mouth in the morning and 0.1 mg in the evening. Active diazePAM (VALIUM) 5 mg tablet Take 5 mg by mouth as needed in the morning and 5 mg as needed in the evening for anxiety. Active levoFLOXacin (LEVAQUIN) 750 MG tablet Take 750 mg by mouth in the morning. Active metroNIDAZOLE (FLAGYL) 500 MG tablet Take 500 mg by mouth in the morning and 500 mg at noon and 500 mg in the evening. Active naloxone 2 mg/2 mL syringe kit Inject as directed. Active norethindrone (AYGESTIN) 5 mg tablet Take 5 mg by mouth in the morning. Active propranoloL (INDERAL) 20 MG tablet Take 20 mg by mouth in the morning and 20 mg at noon and 20 mg in the evening. Active pantoprazole (PROTONIX) 40 MG EC tablet Take 40 mg by mouth every morning before breakfast. Active sertraline (ZOLOFT) 100 MG tablet Take 100 mg by mouth in the morning. Active HYDROcodone-acet aminophen (NORCO) 5-325 mg per tabletIndication s:Back pain, unspecified back location, unspecified back pain laterality, unspecified chronicity,Cervi kranthi dystonia Take 1 tablet by mouth in the morning and 1 tablet in the evening. Max Daily Amount: 2 tablets. 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 current use of hormonal contraceptive 10/07/2022 Autistic disorder 04/17/2022 Pervasive developmental disorder 04/17/2022 Chronic constipation 04/17/2022 Intermittent explosive disorder 04/17/2022 Overweight 01/20/2021 Learning disability 01/20/2021 History of psychosis 01/20/2021 Resolved Problems Problem Noted Date Diagnosed Date Resolved Date Person living in residential institution 01/20/2021 12/15/2023 Encounters Date Type Department Care Team Description 09/22/2024 4:15 PM CDT Office Visit [facility] [place] [facility] [address] [place] [address] Sharon Lin PA Encounter for Medicare annual wellness exam (Primary Dx) 09/21/2024 Travel 08/14/2024 Refill [facility] [place] [facility] [address] [place] [address] Ivanna Contreras LPN Back pain, unspecified back location, unspecified back pain laterality, unspecified chronicity; Cervical dystonia from Last 3 Months Immunizations Immunization Administration Dates Next Due Moderna SARS-CoV-2 Bivalent Booster (6+ y.o.) 11/26/2022,04/17/2022 Moderna SARS-CoV-2 Vaccination 12/10/2021,2020,03/03/2021 influenza, injectable, quadr ivalent, preservative free (AFLURIA/FLUARIX/FLULAVAL/FLUZONE) 02/09/2022 pneumococcal conjugate PCV 20 (PREVNAR 20) 06/05 Social History Tobacco Use Types Packs/Day Years Used Date Smoking Tobacco: Never Smokeless Tobacco: Never Tobacco Cessation:Counseling Given: Not Answered PHQ-2 Answer Date Recorded PHQ-2 Score 0 07/12/2023 Comments Unknown Sex and Gender Information Value Date Recorded Sex Assigned at Not on file Legal Sex Female 1:16 PM CDT Gender Identity Not on file Sexual Orientation Not on file Last Filed Vital Signs Vital Sign Reading Time Taken Comments Blood Pressure 116/80 10/02/2024 8:12 AM CDT Pulse 77 10/02/2024 8:12 AM CDT Temperature 36.6 C (97.8 F) 10/02/2024 8:12 AM CDT Respiratory Rate 17 10/02/2024 8:12 AM CDT Oxygen Saturation 99% 10/02/2024 8:12 AM CDT Inhaled Oxygen Concentration - - Weight 88 kg (194 lb) 10/02/2024 8:12 AM CDT Height 157.5 cm (5' 2 ) 10/02/2024 8:12 AM CDT Body Mass Index 35.48 10/02/2024 8:12 AM CDT Plan of Treatment Upcoming Encounters Date Type Department Care Team (Late st Contact Info) Description 10/30/2024 3:50 PM CDT External Patient Visit [facility] [place] [address] [place] [address] Jignesh Mcarthur MD [address] [place] [address] Health Maintenance Due Date Last Done Comments MMR Vaccines (1 of 1 - Standard series) 1991 Varicella Vaccines (1 of 2 - 13+ 2-dose series) 2003 Hepatitis B Vaccines (1 of 3 - 19+ 3-dose series) 2009 Td, Tdap Vaccines Adult 2009 Pap Smear 2011 HPV Vaccines (1 - 3-dose SCDM series) 2017 COVID-19 Vaccine ( season) 2023 11/26/2022, 04/17/2022, 12/10/2021, Additional history exists Influenza Vaccination (#1) 11/17/202402/08, 03/08/2023, 02/09/2022, Additional history exists Medicare Annual Wellness 09/22/2025 025, 09/22/2024, 07/09/2023, Additional history exists Pneumococcal Vaccine: Pediatrics (0 to 5 Years) and At-Risk Patients (6 to 49 Years) Aged Out 06/05/2022 No longer eligible based on patient's age to complete this topic HIB Vaccines Aged Out No longer eligi ble based on patient's age to complete this topic Hepatitis A Vaccines Aged Out No long er eligible based on patient's age to complete this topic IPV Vaccines Aged Out No longer eligi ble based on patient's age to complete this topic Meningococcal Vaccines Aged Out No lo nger eligible based on patient's age to complete this topic RSV Mab Nirsevimab (Beyfortus) <20 months Aged Out No longer eligibl e based on patient's age to complete this topic Rotavirus Vaccines Aged Out No longer eligible based on patient's age to complete this topic Insurance [address] [address] [employer] MEDICARE Care Teams Cat Driver Relationship Specialty Start Date End Date Jignesh Mcarthur MD [facility] [address] [place] [address] PCP - General Family Medicine 03/17/22
--- OUTSIDE RECORDS SUMMARY | 2024-10-25 10:02 | XMS_ITS | Clinical Summary ---
Author Organization Lesly [facility] pittn Address [address] [facility] [address] [place] [address] Phone Care Team Providers Care Online Communications Specialist Name Role Phone Jignesh Mcarthur MD Primary Care Provid er Allergies Active Allergy Reactions Criticality Noted Date Comments Penicillins Unknown 01/04/2023 Medications norethindrone acetate (AYGESTIN) 5 mg Tablet Take 5 mg by mouth daily. Active sertraline (ZOLOFT) 100 mg tablet Take 200 mg by mouth daily. Active acetaminophen (TYLENOL) 325 mg tablet Take 325 mg by mouth every 4 hours as needed for Pain. Active ARIPiprazole (ABILIFY) 10 mg tablet Take 15 mg by mouth daily. Active cloNIDine HCL (CATAPRES) 0.1 mg tablet Take 0.1 mg by mouth daily at bedtime. Active prazosin (MINIPRESS) 1 mg capsule Take 1 mg by mouth daily at bedtime. Active propranoloL (INDERAL) 20 mg tablet Take 20 mg by mouth 2 times daily. Active risperiDONE (RisperDAL) 0.5 mg tablet Take 0.5 mg by mouth 2 times daily. Active trihexyphenidyL (ARTANE) 2 mg tablet Take 2 mg by mouth 2 times daily. Active cefUROXime axetil (CEFTIN) 500 mg tabletIndication s:Otitis media Take 1 Tablet (500 mg) by mouth every 12 hours. 20 Tablet 5 Active HYDROcodone-acet aminophen (NORCO) 5-325 mg tabletIndication s:Acute suppurative otitis media of right ear with spontaneous rupture of tympanic membrane, recurrence not specified Take 1 Tablet by mouth every 6 hours as needed for Pain. Max Daily Amount: 4 Tablets 20 Tablet 5 Active clindamycin HCL (CLEOCIN) 300 mg Capsule Take 1 Capsule (300 mg) by mouth 3 times daily for 5 days. 15 Capsule 5 10/11/19 25 saccharomyces boulardii (Florastor) 250 mg Capsule Take 1 Capsule (250 mg) by mouth 2 times daily for 10 days. 20 Capsule 5 10/16/19 25 Active Problems Problem Noted Date Diagnosed Date Choking episode 10/05/2024 Aspiration into airway 10/05/2024 Cervical dystonia 08/31/2023 Encounters Date Type Department Care Team Description 10/10/2024 External Device Data [facility]CTION Provider, Abstract 10/05/2024 9:13 AM CDT - 10/05/2024 11:30 AM CDT Emergency [facility] Emergency Medicine [address] [address] Bo Cleveland MD Aspiration into airway, initial encounter (Primary Dx); Choking episode Discharge Disposition: Home or Self Care 10/05/2024 - 10/05/2024 11:59 PM CDT Hospital Encounter [facility] Medical [address] [address] Ambulance, [facility] Discharge Disposition: [facility] hospital 10/05/2024 Travel 09/12/2024 External Device Data [facility] ABSTRACTION Provider, Abstract 09/12/2024 External Device Data [facility]STRACTION Provider, Abstract 09/12/2024 External Device Data [facility]STRACTION Provider, Abstract 09/08/2024 8:44 AM CDT - 09/08/2024 9:45 AM CDT Emergency [facility] Emergency Medicine [address] [address] Shital Garcia MD Acute suppurative otitis media of right ear with spontaneous rupture of tympanic membrane, recurrence not specified (Primary Dx) Discharge Disposition: Medicaid Nursing Facility 09/08/2024 6:20 AM CDT - 09/08/2024 11:59 PM CDT Hospital Encounter [facility] Emergency Medical [facility] [address] [address] Shital Garcia MD Ambulance, [facility] Discharge Disposition: Home or Self Care 09/08/2024 - 09/08/2024 11:59 PM CDT Hospital Encounter [facility] Emergency Medical Services [place] [address] [place] [address] [facility] Discharge Disposition: [facility] 09/08/2024 External Device Data [facility] ABSTRACTION Provider, Abstract 09/07/2024 External Device Data [facility]STRACTION Provider, Abstract 09/06/2024 4:52 AM CDT - 09/06/2024 5:35 AM CDT Emergency [facility] Medicine [address] [place] [address] Paulino Christianson DO Acute suppurative otitis media of right ear with spontaneous rupture of tympanic membrane, recurrence not specified (Primary Dx) Discharge Disposition: Snf Fac(SNF) with Medicare Certification in Anticipation of Skilled Care 09/06/2024 12:15 AM CDT - 09/06/2024 11:59 PM CDT Hospital Encounter [facility] Emergency Medical Services [place] [address] [place] [address] [facility]: Intermediate Care Facility 09/06/2024 - 09/06/2024 11:59 PM CDT Hospital Encounter [facility] Medical Services [place] [address] [place] [address] [facility] Discharge Disposition: [facility] 09/06/2024 External Device Data [facility] ABSTRACTION Provider, Abstract 09/06/2024 External Device Data [facility] ABSTRACTION Provider, Abstract 09/06/2024 Travel from Last 3 Months Social History Tobacco Use Types Packs/Day Years Used Date Smoking Tobacco: Never Passive Smoke Exposure: Never Smokeless Tobacco: Never Tobacco Cessation:Counseling Given: Not Answered Alcohol Use Standard Drinks/Week Comments Never 0 (1 standard drink = 0.6 oz pur e alcohol) Feeling Safe Answer Date Recorded Are you in a relationship wi th someone who hurts you emotionally and/or physically? No 10/05/2024 Comments No Sex and Gender Information Value Date Recorded Sex Assigned at Not on file Legal Sex Female 1:09 AM CDT Gender Identity Not on file Sexual Orientation Not on file Last Filed Vital Signs Vital Sign Reading Time Taken Comments Blood Pressure 98/64 10/05/2024 10:51 AM CDT Pulse 69 09/06/2024 4:54 AM CDT Temperature 36.1 C (97 F) 10/05/2024 9:14 AM CDT Respiratory Rate 16 10/05/2024 10:51 AM CDT Oxygen Saturation 98% 10/05/2024 10:51 AM CDT Inhaled Oxygen Concentration - - Weight 90 kg (198 lb 6.4 oz) 10/05/2024 9:14 AM CDT Height 162.6 cm (5' 4 ) 10/05/2024 9:14 AM CDT Body Mass Index 34.06 10/05/2024 9:14 AM CDT Plan of Treatment Upcoming Encounters Date Type Department Care Team (Late st Contact Info) Description 01/30/2025 10:30 AM CDT Appointment [facility] Neurology [facility] [address] [place] [phone] Phillip Henderson MD [address] [place] [address] Health Maintenance Due Date Last Done Comments DTAP/TDAP/TD VACCINES (1 - Tdap) 2009 HEPATITIS B VACCINES (1 of 3 - 19+ 3-dose series) 2009 HPV/Cotest (21-29) 2011 CERVICAL CANCER SCREENING 2020 HPV/Cotest (30-65) 2020 PAP SMEAR 2020 INFLUENZA VACCINE (#1) 2024 02/09/2022 COVID-19 Vaccine Completed 07/13/2024, , 11/26/2022, Additional history exists HPV VACCINES Aged Out No longer eligi ble based on patient's age to complete this topic Procedures Procedure Name Priority Date/Time Associated Diagnosis Comments POC GLUCOSE Stat 10/05/2024 9:40 AM CDT XR CHEST PA OR AP 1 VW Stat 10/05/2024 9:39 AM CDT from Last 3 Months Results * (ABNORMAL) POC GLUCOSE (10/05/2024 9:40 AM CDT) GLUCOSE POC 117(H) 74 - 99 mg/dL 10/05/2024 9:40 AM CDT [facility] SPECIMEN SOURCE, GLUCOSE POC Whole Blood 10/05/2024 9:40 AM CDT [facility] Blood, whole 10/05/2024 9:40 AM CDT 10/05/2024 9:47 AM CDT us Bo Cleveland MD POINT OF CARE TESTING Final Res ult [facility] CLIA # [id number] [address] [place] [address] * XR CHEST PA OR AP 1 VW (10/05/2024 9:39 AM CDT) Anatomical Region Laterality Modality Chest Computed Radiogr aphy 10/05/2024 9:39 AM CDT Impressions 10/05/2024 10:03 AM CDT IMPRESSION: Please see below. Exam: XR CHEST PA OR AP 1 VW Date/Time of Exam: 10/05/2024 9:39 AM Reason For Exam: Hypoxia;Resp Distress. Diagnosis: See Reason for Exam. Findings: Trace groundglass haze of left lower hemithorax possibly reflecting small layering pleural effusion. No pneumothorax. No consolidating airspace disease. Cardiac silhouette within normal limits. Imaged skeleton intact. Narrative Procedure Note Mary Ignacio MD - 10/05/2024 IMPRESSION: Please see below. Exam: XR CHEST PA OR AP 1 VW Date/Time of Exam: 10/05/2024 9:39 AM Reason For Exam: Hypoxia;Resp Distress. Diagnosis: See Reason for Exam. Findings: Trace groundglass haze of left lower hemithorax possibly reflecting small layering pleural effusion. No pneumothorax. No consolidating airspace disease. Cardiac silhouette within normal limits. Imaged skeleton intact. 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
--- NOTE | 2024-10-25 10:03 | W.ED.GENADLT ---
HPI - General Adult General: Chief complaint: General Medical Stated complaint: AMS Time Seen by Provider: 10/25/24 09:59 Source: EMS Mode of arrival: EMS Limitations: physical limitation History of Present Illness: 34-year-old female history of severe autism is currently at jail [place]. Per EMS patient had a short period of unresponsiveness at [place] she then woke up they states that she walked back to her room she has been in her baseline with EMS whole time. She is able to tell me her name here denies pain anywhere vitals with EMS was normal Related Data Home Medications ?Medication ?Instructions ?Recorded ?Confirmed acetaminophen 325 mg tablet 650 mg PO QID PRN Pain 07/20/23 07/20/23 aripiprazole 10 mg tablet 10 mg PO QAM 07/20/23 07/20/23 baclofen 5 mg tablet 5 mg PO BID 07/20/23 07/20/23 clonidine HCl 0.1 mg tablet 0.1 mg PO BEDTIME 07/20/23 07/20/23 diazepam 5 mg tablet 5 mg PO BID 07/20/23 07/20/23 naloxone 2 mg/2 mL syringe kit 2 mg IM Q2M PRN Opioid Overdose 07/20/23 07/20/23 norethindrone acetate 5 mg tablet 5 mg PO QAM 07/20/23 07/20/23 pantoprazole 40 mg tablet,delayed 40 mg PO QAM 07/20/23 07/20/23 release propranolol 20 mg tablet 20 mg PO BID 07/20/23 07/20/23 sertraline 100 mg tablet 150 mg PO QAM 07/20/23 07/20/23 Previous Rx's ?Medication ?Instructions ?Recorded metronidazole 500 mg tablet 500 mg PO TID #21 tabs 07/21/23 Allergies Allergy/AdvReac Type Severity Reaction Status Date / Time Penicillins Allergy Unknown Verified 10/25/24 10:17 Review of Systems General: Reports: ROS unobtainable due to mental status PFSH ED PFSH: Medical History (Updated 10/25/24 @ 10:53 by Eric Clark MD) Autism Physical Exam Const: COMMON NORMALS: no acute distress, healthy appearing and alert ORIENTATION/CONSCIOUSNESS: Yes oriented to person HENMT: COMMON NORMALS: normocephalic and atraumatic HEAD & SCALP: normocephalic and atraumatic Eye: COMMON NORMALS: Equal, round and reactive pupils present and EOMs intact bilaterally PUPIL: Yes Equal, round and reactive pupils present Neck/C-Spine: COMMON NORMALS: full ROM and supple Chest: COMMONS NORMALS: normal inspection of the chest and normal palpation of entire chest wall Resp: COMMON NORMALS: normal respiratory effort, No retractions, No use of accessory muscles and clear to auscultation bilaterally AUSCULTATION: clear to auscultation bilaterally Cardio: COMMON NORMALS: regular rate, regular rhythm and No murmurs present (Cardio) RATE: regular rate RHYTHM: regular rhythm GI: COMMON NORMALS: Normal to inspection, nondistended, normoactive bowel sounds present, Soft to palpation, non-tender and no masses PALPATION: Yes Soft to palpation Extremity: COMMON NORMALS: normal to inspection and full ROM Neuro: COMMON NORMALS: moves all extremities and no focal motor deficits SENSORIUM/ORIENTATION: Yes alert and Yes oriented to person Psych: COMMON NORMALS: Normal thought process present and cooperative THOUGHT PROCESS: Normal thought process present Skin: COMMON NORMALS: no rashes or lesions noted and no wounds GENERAL SKIN EXAM: no rashes or lesions noted Course Vital Signs: Vital signs: Vital Signs Temperature 97.5 F L 10/25/24 09:59 Pulse Rate 63 10/25/24 09:59 Respiratory Rate 22 H 10/25/24 09:59 Blood Pressure 141/95 10/25/24 09:59 Pulse Oximetry 98 10/25/24 09:59 Oxygen Delivery Me thod Room Air 10/25/24 09:59 MDM - General Adult Medical Decision Making Patient presents here with a. Unresponsiveness in the jail she is at her baseline here she has been talking is able to ambulate she stable for discharge back to jail Medical Records I reviewed the patient's medical records. Lab Data I reviewed the patient's lab results. 10/25/24 10:29 10/25/24 10:29 Laboratory Results WBC 5.45 10^3/uL (3.29-11.43) 10/25/24 10:29 RBC 3.79 10^6/uL (3.85-5.65) L 10/25/24 10:29 Hgb 11.50 g/dL (11.27-16.99) 10/25/24 10:29 Hct 35.9 % (36-47) L 10/25/24 10: MCV 94.7 fl (85-98) 10/25/24 10: MCH 30.3 pg (27-33) 10/25/24 10: MCHC 32.0 g/dL (30-55) 10/25/24 10: RDW 13.0 % (12.1-15.1) 10/25/24 10: Plt Count 238 10^3/cmm (157-399) 10/25/24 10: MPV 10.4 fL (7.4-10.4) 10/25/24 10: Neut % (Auto) 69.1 % 10/25/24 10: Lymph % (Auto) 23.3 % 10/25/24 10: [place] % (Auto) 5.7 % 10/25/24 10: Eos % (Auto) 1.3 % 10/25/24 10: Baso % (Auto) 0.4 % 10/25/24 10: Neut # (Auto) 3.77 10^3/uL (1.8-7.7) 10/25/24 10: Lymph # (Auto) 1.3 10^3/uL (0.8-4.8) 10/25/24 10: [place] # (Auto) 0.3 10^3/uL (0.2-0.9) 10/25/24 10: Eos # (Auto) 0.1 10^3/uL (0.0-0.8) 10/25/24 10: Baso # (Auto) 0.0 10^3/uL (0.0-0.1) 10/25/24 10: Nucleated RBC % (auto) 0 % 10/25/24 10: Nucleated RBCs # 0.0 /100WBC 10/25/24 10:29 Sodium 138 mmol/L (136-145) 10/25/24 10: Potassium 4.3 mmol/L (3.5-5.1) 10/25/24 10: Chloride 105 mmol/L (98-107) 10/25/24 10: Carbon Dioxide 19 mmol/L (22-29) L 10/25/24 10: Anion Gap 18.3 (5-19) 10/25/24 10:29 BUN 12 mg/dL (6-20) 10/25/24 10:29 Creatinine 0.7 mg/dL (0.5-0.9) 10/25/24 10: GFR Calculation 95.8 mL/min (90-130) 10/25/24 10:29 Glucose 96 mg/dL (65-115) 10/25/24 10:29 Calculated Osmolality 286 mOsm/kg (285-295) 10/25/24 10:29 Calcium 8.2 mg/dL (8.5-10.5) L 10/25/24 10:29 Total Bilirubin 0.4 mg/dL (0.15-1.2) 10/25/24 10: AST 25 U/L (0-32) 10/25/24 10: ALT 45 U/L (0-33) H 10/25/24 10:29 Alkaline Phosphatase 64 U/L (35-105) 10/25/24 10: Total Protein 6.7 g/dL (6.6-8.7) 10/25/24 10:29 Albumin 3.8 g/dL (3.5-5.2) 10/25/24 10: Globulin 2.9 g/dL (1.3-4.6) 10/25/24 10:29 No radiology studies performed this visit Discharge Plan Discharge Patient Disposition: Home Clinical Impression: Autism Condition: Stable Prescriptions: No Action clonidine HCl 0.1 mg tablet 0.1 mg PO BEDTIME acetaminophen 325 mg Tablet 650 mg PO QID PRN (Reason: Pain) sertraline 100 mg tablet 150 mg PO QAM pantoprazole 40 mg tablet,delayed release (DR/EC) 40 mg PO QAM norethindrone acetate 5 mg tablet 5 mg PO QAM propranolol 20 mg tablet 20 mg PO BID diazepam 5 mg tablet 5 mg PO BID aripiprazole 10 mg tablet 10 mg PO QAM baclofen 5 mg tablet 5 mg PO BID naloxone 2 mg/2 mL Syringe Kit 2 mg IM Q2M PRN (Reason: Opioid Overdose) Rx Instructions: NTExceed 10 mg total dose/episode metronidazole 500 mg tablet 500 mg PO TID Qty: 21 0RF Discharge Orders: Discharge ED (Routine); Ordered 10/25/24 Ordered By: Eric Clark Referrals: Jignesh Mcarthur MD [Primary Care Provider, [facility]] Discharge Diet: Advance as tolerated Discharge Activity: Resume usual activity Patient Instructions: Autism Spectrum Disorder (DC) Print Language: Vietnamese Coding Level of Care Code ED Seed Pelleter for Janay Bartholomew
--- NOTE | 2024-10-25 10:30 | PC.NURSE ---
this RN took report from SILVIA Jennings at [facility], [place]. states that pt 'crashed' at breakfast this morning stating that she 'almost went unresponsive and had pin point pupils' and that heart rate was 42. RN states that they were able to ambulate pt to the room after the episode.
[2024-10-25 10:32] LABS: Hematocrit 35.9 % (36-47); Hemoglobin 11.50 g/dL (11.27-16.99); Mean Corpuscular HGB Conc 32.0 g/dL (30-55); Mean Corpuscular Hemoglobin 30.3 pg (27-33); Mean Corpuscular Volume 94.7 fl (85-98); Nucleated Red Blood Cells % 0 %; Platelet Count 238 10^3/cmm (157-399); Red Blood Count 3.79 10^6/uL (3.85-5.65); White Blood Count 5.45 10^3/uL (3.29-11.43)
--- NOTE | 2024-10-25 10:45 | PC.NURSE ---
unable to monitor pts VS as pt unable to comprehend the need for cords to stay in place.
[2024-10-25 10:51] LABS: Alanine Aminotransferase 45 U/L (0-33); Albumin Level 3.8 g/dL (3.5-5.2); Alkaline Phosphatase 64 U/L (35-105); Anion Gap 18.3 (5-19); Aspartate Amino Transferase 25 U/L (0-32); Blood Urea Nitrogen 12 mg/dL (6-20); Calcium 8.2 mg/dL (8.5-10.5); Carbon Dioxide 19 mmol/L (22-29); Chloride 105 mmol/L (98-107); Creatinine Clr Calc Pharmacy 114.1960; Globulin 2.9 g/dL (1.3-4.6); Glucose 96 mg/dL (65-115); Osmolality Calculated 286 mOsm/kg (285-295); Potassium 4.3 mmol/L (3.5-5.1); Sodium 138 mmol/L (136-145); Total Protein 6.7 g/dL (6.6-8.7)
[2024-10-25 12:27] VITALS: BP 0/0; PULSE 63; O2SAT 97
== END 2024-10-25 12:27 | disposition home or self-care (01) ==
PROVIDERS: Emergency Provider Emergency Medicine; PCP Family Medicine
DX: F84.0 Autistic disorder (principal)
CPT/HCPCS: 80053; 85025; 99284